=== PATIENT | male | born 1975 | race Two or more races ===

== ENCOUNTER 2018-09-29 07:44 | Day surgery (SDC) | payer OTHER ==
[~2018-09-29] VITALS: Ht 180.3 cm; Wt 106.6 kg
[2018-09-29] VITALS (12 sets, daily range): BP systolic 96–133; BP diastolic 52–86
--- NOTE | 2018-09-29 07:22 | Pre-Procedure Note/Attestation ---
Pre-Procedure Note/Attestation Complete Prior to Procedure Planned Procedure: right Procedure Narrative: knee arthroscopy, medial menisectomy Indications for Procedure Pre-Operative Diagnosis: right knee medial menisectomy Attestation I attest that I discussed the nature of the procedure; its benefits; risks and complications; and alternatives (and the risks and benefits of such alternatives ), prior to the procedure, with the patient (or the patient's legal kiosk sales representative). I attest that, if there was a reasonable possibility of needing a blood transfusion, the patient (or the patient's legal kiosk sales representative) was given the [facility] standardized written summary, pursuant to the Tommy Fillmore Blood Safety Act ([place] Health and Safety Code # 1645, as amended). I attest that I re-evaluated the patient just prior to the surgery and that there has been no change in the patient's H&P, except as documented below: Newton Underwood MD Sep 29, 2018 07:22
--- NOTE | 2018-09-29 07:22 | Operative Note - PDOC ---
Operative Note Operative Note Pre-op Diagnosis: right knee medial menisectomy Procedure: see op report Post-op Diagnosis: same as pre-op plus Operative Findings: consistent w/pre-op dx studies Anesthesia: general Specimen: none Complications: none Condition: stable Estimated Blood Loss: none Implant(s) used?: No Newton Underwood MD Sep 29, 2018 07:22
[~2018-09-29 07:44] MED LIST: ceFAZolin 1gm IVPB IVPB ONE; celeBREX 200mg Cap **SURGERY PATIENTS ONLY ORAL ONE; oxyCONTIN 20mg tab ORAL ONE
[2018-09-29] MEDS ORDERED: celeBREX 200mg Cap **SURGERY PATIENTS ONLY ORAL ONE (08:41)
[2018-09-29] MEDS ORDERED: oxyCONTIN 20mg tab ORAL ONE (08:41)
--- NOTE | 2018-09-29 09:06 | Anethesia Preoperative Eval ---
Anesthesia Pre-op PMH/ROS General Date of Evaluation: Sep 29, 2018 Anesthesiologist: Mark ASA Score: ASA 2 Mallampati Score Class I : Soft palate, uvula, fauces, pillars visible Class II: Soft palate, uvula, fauces visible Class III: Soft palate, base of uvula visible Class IV: Only hard plate visible Mallampati Classification: Class II Surgeon: Kj Diagnosis: Right knee medial meniscus tear Surgical Procedure: Right knee arthroscopy, medial meniscectomy Anesthesia History: none Family History: no anesthesia problems Allergies: Coded Allergies: No Known Allergies (Unverified , 09/28/18) Medications: see eMAR Patient NPO?: Yes NPO Date: Sep 28, 2018 NPO Time: 22:00 Past Medical History Cardiovascular: Denies: HTN, CAD, MS, valve dz, arrhythmia, other Pulmonary: Denies: asthma, COPD, MARIALUISA, other Gastrointestinal/Genitourinary: Denies: GERD, CRI, ESRD, other Neurologic/Psychiatric: Denies: dementia, CVA, depression/anxiety, TIA, other Endocrine: Denies: DM, hypothyroidism, steroids, other HEENT: Denies: cataract (L), cataract (R), glaucoma, KOTZEBUE (L), KOTZEBUE (R), other Hematology/Immune: Denies: anemia, DVT, bleeding disorder, other Musculoskeletal/Integumentary: Denies: OA, RA, DJD, DDD, edema, other PSxH Narrative: Denies Anesthesia Pre-op Phys. Exam Physician Exam Last Vital Signs Date Time Temp Pulse Resp B/P (MAP) Pulse Ox O2 Delivery O2 Flow Rate FiO2 09/29/18 08:58 98.5 77 18 118/85 96 Room Air Constitutional: NAD Cardiovascular: RRR Respiratory: CTA Airway Exam Mallampati Score: Class III MO: limited ROM: limited Teeth: intact Anesthesia Pre-op A/P Labs see chart Studies Pre-op Studies: EKG - sr Risk Assessment & Plan Assessment: ASA II Plan: GA Status Change Before Surgery: No Pre-Antibiotics Drug: Ancef 2g Given Within 1 Hr of Incision: Yes La Nena Hobbs MD Sep 29, 2018 09:06
[2018-09-29] MEDS ORDERED: LR 1000ml 1,000 ML IVLG SCH (09:07)
[2018-09-29] MEDS ORDERED: Midazolam 2mg/2ml Inj IVP PRN (09:15)
[2018-09-29] MEDS ORDERED: Hydromorphone 0.5mg/0.5ml inj IVP PRN (09:15)
[2018-09-29] MEDS ORDERED: DiphenhydrAMINE 50mg/ml Inj IVP PRN (09:15)
[2018-09-29] MEDS ORDERED: LORazepam Inj 2mg/ml 1ml IV PRN (09:15)
[2018-09-29] MEDS ORDERED: Ketorolac 30mg Inj IV PRN (09:15)
[2018-09-29] MEDS ORDERED: fentaNYL 100 mcg/2 mL IV PRN (09:15)
[2018-09-29] MEDS ORDERED: Bupivacaine 0.5% Inj 30 ml vial INJ ONE (09:44)
[2018-09-29] MEDS ORDERED: Lidocaine 1% 10mg/ml/Epi 0.005mg/ml 30ml vial INJ ONE (09:44)
[2018-09-29] MEDS ORDERED: Ketorolac 30mg Inj ONE ×2 (09:44→09:55)
[2018-09-29] MEDS ORDERED: Kenalog-40 1ml Vial ONE (09:44)
[2018-09-29] MEDS ORDERED: Morphine Sulfate PF 10 ML ONE (09:45)
[2018-09-29] MEDS ORDERED: EPINEPHrine 1mg/1ml Amp ONE (09:45)
[2018-09-29] MEDS ORDERED: Propofol 200mg/20ml IV ONE (09:55)
[2018-09-29] MEDS ORDERED: Lidocaine 1% MPF 10mg/ml 5ml ONE ×2 (09:55→15:42)
[2018-09-29] MEDS ORDERED: fentaNYL 100 mcg/2 mL IV ONE (09:55)
[2018-09-29] MEDS ORDERED: Midazolam 2mg/2ml Inj ONE (09:55)
[2018-09-29] MEDS ORDERED: Duramorph PF 10mg/10ml amp IV ONE (09:57)
[2018-09-29] MEDS ORDERED: NS Irrig 4000ml IRRIG ONE (09:57)
[2018-09-29] MEDS ORDERED: LR 1000ml ONE (10:00)
--- NOTE | 2018-09-29 11:04 | Immediate Post-Op Evaluation ---
Immediate Post-Op Evalulation Immediate Post-Op Evalulation Procedure: Right knee arthroscopy Date of Evaluation: Sep 29, 2018 Time of Evaluation: 11:06 IV Fluids: 700 Blood Products: 0 Estimated Blood Loss: min Urinary Output: 0 Blood Pressure Systolic: 96 Blood Pressure Diastolic: 56 Pulse Rate: 67 Respiratory Rate: 18 O2 Sat by Pulse Oximetry: 96 Temperature (Fahrenheit): 97 Pain Score (1-10): 0 Nausea: No Vomiting: No Complications 0 Patient Status: awake, reacts, patent, none Hydration Status: adequate Drug: Ancef 2g Given Within 1 Hr of Incision: Yes Time Given: 10:10 La Nena Hobbs MD Sep 29, 2018 11:04
--- NOTE | 2018-09-29 11:05 | 48 Hour Post Anesthesia Eval ---
Post Anesthesia Evaluation Procedure: Right knee arthroscopy Date of Evaluation: Sep 29, 2018 Blood Pressure Systolic: 128 0: 83 Pulse Rate: 76 Respiratory Rate: 20 Temperature (Fahrenheit): 97.5 O2 Sat by Pulse Oximetry: 97 Airway: patent Nausea: No Vomiting: No Pain Intensity: 0 Hydration Status: adequate Cardiopulmonary Status: at baseline Mental Status/LOC: patient returned to baseline Post-Anesthesia Complications: 0 Follow-up care needed: ready to discharge La Nena Hobbs MD Sep 29, 2018 11:05
[2018-09-29] MEDS ORDERED: Ropivacaine 5mg/ml Vial 30ml INJ ONE (15:42)
[2018-09-29] MEDS ORDERED: Tylenol #3 tab (300mg/30mg) ORAL PRN (16:01)
[2018-09-29] MEDS ORDERED: Norco 5mg/325mg tab ORAL PRN (16:01)
[2018-09-29] MEDS ORDERED: D5 1/2NS 1,000 ML IV SCH (16:01)
[2018-09-29] MEDS ORDERED: HYDROmorphone 1mg/ml Carpuject SUBQ PRN (16:01)
--- NOTE | 2018-09-29 19:17 | Operative Note - Dictated ---
DATE OF OPERATION: 09/29/2018 PREOPERATIVE DIAGNOSIS: Right knee internal derangement and meniscal tear. POSTOPERATIVE DIAGNOSES: 1. Right knee peripheral tear of posterior horn and middle body medial meniscus. 2. Hypertrophic synovial tissue/fat pad in medial and lateral patellofemoral compartment. PROCEDURES: 1. Right knee diagnostic arthroscopy. 2. Synovectomy/fixation of fat pad of medial and lateral patellofemoral compartment. SURGEON: Newton Underwood M.D. ANESTHESIA: General. INDICATION FOR PROCEDURE: The patient is a pleasant gentleman, who has had progressive knee pain. The patient failed conservative treatment and elected to undergo right knee diagnostic arthroscopy with possible meniscectomy. Risks, limitations, expectations, and complications of the procedure were discussed in detail. All questions addressed. DESCRIPTION OF PROCEDURE: After informed consent was obtained, the patient was brought to the operating room. The patient was placed under general anesthesia. Tourniquet was applied on the right proximal thigh. Right leg was prepped and draped in a sterile manner. Time-out was performed. An inferolateral stab incision was then made. There was significant resistance introducing the trocar into the lateral portal. Patellofemoral compartment was entered and there was hypertrophic fat pad in synovial tissue making visualization somewhat difficult. Medial gutter was entered free of any loose bodies. Medial compartment was entered. Medial working portal was established. At this point, the fat pad in the synovial tissue around the medial compartment lateral compartment was all debrided to better visualize the compartments. Once that was completed, the camera was placed in the medial compartment and the meniscus was probed. There was a small peripheral tear along the middle body of the medial meniscus. The probe was then placed into this area to see if there is gross subluxation of the meniscus, which was not the case. Therefore, a shaver was then placed along the area where it was torn to up the soft tissues along the peripheral aspect of the meniscus to allow it to heal. Once that was done, the ACL was probed and noted to be intact. Lateral compartment entered and free of the meniscal chondral damage. At this point, the camera was placed in the patellofemoral compartment. Dissection of the fat pad and Synovectomy was completed. Instruments removed. Portal sites were closed with 3-0 Monocryl sutures. Steri-Strips and a sterile dressing were applied. The patient was awoken and taken to recovery room with stable vital signs. ESTIMATED BLOOD LOSS: None. COMPLICATIONS: None. SPECIMENS: None. IMPLANTS: None. Newton Underwood M.D. DR: NOAM JOB#: [id number] CC:
== END 2018-09-29 14:50 | disposition home or self-care (01) ==
LOC: SUR 07:44
DX: M23.221 Derangement of posterior horn of medial meniscus due to old tear or injury, right knee (principal); M67.261 Synovial hypertrophy, not elsewhere classified, right lower leg; M79.4 Hypertrophy of (infrapatellar) fat pad
CPT/HCPCS: 29876; J0171; J0690; J1885; J2250; J2274; J2704; J2795; J3010; J3301; J3490; 94003; 94150

== ENCOUNTER 2019-01-24 05:09 | Inpatient (IN) | payer OTHER ==
[2019-01-24] VITALS (10 sets, daily range): BP systolic 109–129; BP diastolic 62–81
[~2019-01-24] VITALS: Ht 180.3 cm; Wt 99.8 kg
[~2019-01-24 05:09] MED LIST changes: +NKM; -ceFAZolin 1gm IVPB IVPB ONE; -celeBREX 200mg Cap **SURGERY PATIENTS ONLY ORAL ONE; -oxyCONTIN 20mg tab ORAL ONE
[2019-01-24] MEDS ORDERED: Dexamethasone 20mg/5ml ONE (05:53)
[2019-01-24] MEDS ORDERED: LR 1000ml 1,000 ML IVLG SCH (06:09)
--- NOTE | 2019-01-24 06:10 | Anethesia Preoperative Eval ---
Anesthesia Pre-op PMH/ROS General Date of Evaluation: Jan 24, 2019 Time of Evaluation: 07:11 Anesthesiologist: Genevieve ASA Score: ASA 2 Mallampati Score Class I : Soft palate, uvula, fauces, pillars visible Class II: Soft palate, uvula, fauces visible Class III: Soft palate, base of uvula visible Class IV: Only hard plate visible Mallampati Classification: Class II Surgeon: Cecilio Diagnosis: Neck Pain Surgical Procedure: ACDF C3-4, C4-5 Family History: no anesthesia problems Allergies: Coded Allergies: No Known Allergies (Unverified , 01/23/19) Medications: see eMAR Patient NPO?: Yes NPO Date: Jan 23, 2019 NPO Time: 2100 Past Medical History Cardiovascular: Reports: HTN Other: obesity - BMI 31 PSxH Narrative: R Knee Arthroscopy Anesthesia Pre-op Phys. Exam Physician Exam Last Vital Signs Date Time Temp Pulse Resp B/P (MAP) Pulse Ox O2 Delivery O2 Flow Rate FiO2 01/24/19 05:48 Room Air 01/24/19 05:43 97.5 75 18 129/81 (97) 98 Constitutional: NAD Neurologic: CN 2-12 intact Cardiovascular: RRR Respiratory: CTA Gastrointestinal: S/NT/ND Airway Exam Mallampati Score: Class II MO: full ROM: limited Teeth: missing, intact Anesthesia Pre-op A/P Risk Assessment & Plan Assessment: ASA 2 Plan: GA, SED, GlideScope Go Status Change Before Surgery: No Pre-Antibiotics Dru Grams Ancef IV Given Within 1 Hr of Incision: Yes Time Given: 07:31 Rufino Vallejo MD Jan 24, 2019 06:10
[2019-01-24] MEDS ORDERED: Zemuron 50mg/5ml Inj IV ONE (06:14)
[2019-01-24] MEDS ORDERED: Meperidine 50mg/ml Inj(FOR RIGORS ONLY) IVP PRN (06:15)
[2019-01-24] MEDS ORDERED: Norco 5mg/325mg tab ORAL PRN (06:15)
[2019-01-24] MEDS ORDERED: oxyCODONE HCL/Acetaminophen 5/325mg ORAL PRN (06:15)
[2019-01-24] MEDS ORDERED: LORazepam Inj 2mg/ml 1ml IV PRN (06:15)
[2019-01-24] MEDS ORDERED: Metoclopramide 10mg/2ml Inj IVP PRN (06:15)
[2019-01-24] MEDS ORDERED: Atropine Sulfate 0.4mg/ml inj IVP PRN (06:15)
[2019-01-24] MEDS ORDERED: Midazolam 2mg/2ml Inj IVP PRN (06:15)
[2019-01-24] MEDS ORDERED: DiphenhydrAMINE 50mg/ml Inj IVP PRN (06:15)
[2019-01-24] MEDS ORDERED: Hydromorphone 0.5mg/0.5ml inj IVP PRN (06:15)
[2019-01-24] MEDS ORDERED: fentaNYL 100 mcg/2 mL IV PRN (06:15)
[2019-01-24] MEDS ORDERED: Ketorolac 30mg Inj IV PRN ×2 (06:15)
[2019-01-24] MEDS ORDERED: HYDROcodone/Acetamin 7.5/325 tab ORAL PRN (06:15)
[2019-01-24] MEDS ORDERED: Bacitracin 50000 Units Vial ONE (06:26)
[2019-01-24] MEDS ORDERED: Gelfoam Size TOPIC ONE (06:26)
[2019-01-24] MEDS ORDERED: Thrombin 5000 units TOPIC ONE (06:26)
[2019-01-24] MEDS ORDERED: Acetaminophen (Non formulary) 100 ML IV ONE (06:30)
[2019-01-24] MEDS ORDERED: Sodium Chloride 10ml vial INJ ONE (06:33)
[2019-01-24] MEDS ORDERED: Dexamethasone 4mg/ml vial ONE (06:33)
[2019-01-24] MEDS ORDERED: Lidocaine 1% MPF 10mg/ml 5ml ONE (06:33)
[2019-01-24] MEDS ORDERED: Lidocaine 1% Plain 30 ml INJ ONE (06:33)
[2019-01-24] MEDS ORDERED: fentaNYL 100 mcg/2 mL IV ONE ×2 (06:34→08:35)
--- NOTE | 2019-01-24 06:56 | Immediate Post-Op Evaluation ---
Immediate Post-Op Evalulation Immediate Post-Op Evalulation Procedure: ACDF C3-4, C4-5 Date of Evaluation: Jan 24, 2019 Time of Evaluation: 10:19 IV Fluids: 1000 LR Blood Products: 0 Estimated Blood Loss: 25 Urinary Output: 0 Blood Pressure Systolic: 114 Blood Pressure Diastolic: 64 Pulse Rate: 75 Respiratory Rate: 16 O2 Sat by Pulse Oximetry: 95 Temperature (Fahrenheit): 97 Pain Score (1-10): 2 Nausea: No Vomiting: No Complications 0 Patient Status: awake, reacts, patent, none Hydration Status: adequate Dru grams Ancef IV Given Within 1 Hr of Incision: Yes Time Given: 07:31 Rufino Vallejo MD Jan 24, 2019 06:56
[2019-01-24] MEDS ORDERED: Neostigmine 1mg/ml 10ml Inj ONE (07:00)
[2019-01-24] MEDS ORDERED: Sterile Water Irrig 1000ml IRRIG ONE (07:00)
[2019-01-24] MEDS ORDERED: LR 1000ml ONE (07:00)
[2019-01-24] MEDS ORDERED: Dexamethasone 20mg/5ml IVP ONE (07:00)
[2019-01-24] MEDS ORDERED: ceFAZolin sod 1 GM in NS 55 ML IVPB ONE (07:00)
[2019-01-24] MEDS ORDERED: Propofol 1,000mg/ 100ml btl IV ONE (07:00)
[2019-01-24] MEDS ORDERED: NS Irrig 1000ml ONE (07:00)
--- NOTE | 2019-01-24 07:15 | Pre-Procedure Note/Attestation ---
Pre-Procedure Note/Attestation Complete Prior to Procedure Planned Procedure: not applicable Procedure Narrative: ACDF C3-C4, C4-C5 Plate Indications for Procedure Pre-Operative Diagnosis: Trauma HNP radiculopathy Attestation I attest that I discussed the nature of the procedure; its benefits; risks and complications; and alternatives (and the risks and benefits of such alternatives ), prior to the procedure, with the patient (or the patient's legal airline security representative). I attest that, if there was a reasonable possibility of needing a blood transfusion, the patient (or the patient's legal airline security representative) was given the [facility] standardized written summary, pursuant to the Tommy Yelena Blood Safety Act ([place] Health and Safety Code # 1645, as amended). I attest that I re-evaluated the patient just prior to the surgery and that there has been no change in the patient's H&P, except as documented below: Tra Hernandes MD Jan 24, 2019 07:15
[2019-01-24] MEDS ORDERED: Labetalol 5mg/ml 20ml vial IV ONE (08:01)
[2019-01-24] MEDS ORDERED: Phenylephrine 10mg/ml Vial ONE (08:12)
[2019-01-24] MEDS ORDERED: Glycopyrrolate 0.2mg/ml 1ml Vial ONE (09:08)
--- NOTE | 2019-01-24 09:50 | Brief Operative Note ---
Immediate Post Operative Note Operative Note Pre-op Diagnosis: Trauma HNP radiculopathy Procedure: ACDF C3-C4, C4-C5 Anterior Plate Body Habitus Microscope SSEP Xray Post-op Diagnosis: same as pre-op Findings: consistent w/pre-op dx studies Surgeon: Cecilio GAXIOLA Additional Surgeons: Antonette GAXIOLA Anesthesiologist: Genevieve GAXIOLA Anesthesia: general Specimen: yes Complications: none Condition: stable Fluids: anesthesia Estimated Blood Loss: minimal Drains: none Implant(s) used?: Yes Tra Hernandes MD Jan 24, 2019 09:50
[2019-01-24] MEDS ORDERED: Naloxone 0.4mg/ml Inj IVP PRN ×2 (10:30→13:30)
--- NOTE | 2019-01-24 11:07 | Diagnostic Imaging Report ---
INDICATION: Pain, intraoperative TECHNIQUE: Intraoperative imaging Fluoroscopy time: 17.2 seconds Total dose: 0.73612 mGym2 Total number of images: 3 COMPARISON: None FINDINGS: Intraoperative images demonstrate surgical tool projected at the anterior aspect of the C3-4 disc level. Subsequent images document placement of anterior fusion hardware and disc spacers bridging C3-C5. IMPRESSION: Intraoperative imaging as described
[2019-01-24] MEDS ORDERED: Tamsulosin 0.4mg cap ORAL SCH (12:30)
[2019-01-24] MEDS ORDERED: Hydromorphone 0.5mg/0.5ml inj SUBQ PRN (12:45)
[2019-01-24] MEDS ORDERED: Hydromorphone 0.5mg/0.5ml inj SUBQ SCH (13:00)
[2019-01-24] MEDS ORDERED: Chloraseptic Spray 20mL Bottle ORAL ONE (13:00)
[2019-01-24] MEDS ORDERED: Chloraseptic Spray 20mL Bottle ORAL PRN (13:00)
--- NOTE | 2019-01-24 13:30 | NUR ---
NURSE NOTES: Patient is in bed asleep but arousable to verbal stimuli. Patient denies pain, no facial grimacing, moaning or labored breathing noted. Patient is able to move all extremities. Patient is stable. Patient oriented to room, call light, and nurses. Patient encouraged to use call light for assistance, verbalized understanding. Surgical dressing is clean, dry, and intact. Patient is comfortable in bed with call light within reach. Will continue to monitor.
[2019-01-24] MEDS: D5 1/2NS 1,000 ML IV SCH ×3 (14:06→21:40)
[2019-01-24] MEDS: HYDROcodone/Acetamin 10/325 tab ORAL PRN ×2 (14:11→21:40)
--- NOTE | 2019-01-24 15:14 | NUR ---
CASE MANAGEMENT: INITIAL REVIEW 43 YO M PRESENTED TO OUR ED FROM HOME PMHx: HTN. SI:CERVICAL DISCOGENIC PAIN. T 97.5 HR 75 RR 18 B/P 129/81 SATS 98% ON RA NO LABS TODAY IS: IVF @ 125 mL/HR PEPCID PO BID CEFAZOLIN IV Q8H PATIENT ADMITTED TO MED/SURG 01/24/2019 @ 1236 DCP: PATIENT TO BE DISCHARGED TO HOME ONCE MEDICALLY CLEARED. PLAN OF CARE: NEURO CHECKS CLD PT EVAL DISCHARGE TO HOME TODAY Addendum: 01/24/19 at 1733 by Tomeka Pimentel CM [employer]
[2019-01-24] MEDS: ceFAZolin sod 1 GM in D5W 55 ML IV SCH (15:36)
--- NOTE | 2019-01-24 18:46 | Operative Note - Dictated ---
DATE OF OPERATION: 01/24/2019 SURGEON: Tra Hernandes, Ph.D., M.D. COMMUNICATIONS DESIGNER SURGEON: Haroon Whitman M.D. ANESTHESIOLOGIST: Rufino Vallejo M.D. ANESTHESIA: General with intubation. ADMITTING/PREOPERATIVE DIAGNOSIS: Posttraumatic cervical radiculopathy. POSTOPERATIVE DIAGNOSIS: Posttraumatic cervical radiculopathy. OPERATIVE PROCEDURES: 1. ACDF C3-C4, C4-C5. 2. Anterior internal plate fixation, bilateral C3-C4-C5. 3. Body habitus greater than 95th percentile for height. 4. High-powered microscopic dissection. 5. SSEP monitoring. 6. Intraoperative fluoroscopy interpreted by surgeon. 7. Placement of osteopromotive material, C3-C4, C4-C5. COMPLICATIONS: None. ESTIMATED BLOOD LOSS: Minimal. POSTOPERATIVE CONDITION: Good/stable. DESCRIPTION OF PROCEDURE: The patient was brought to the operating room and in supine position general anesthesia intubation was induced. SSEP monitoring active. Positioning appropriate. Determination of incision level with markers placed on the contralateral aspect of the neck and cross-table imaging obtained. Levels marked. Anterior cervical spine sterilely prepped and draped free in usual sterile fashion. Transverse incision left in the skin fold at the appropriate interval was sharply placed in the dermis and epidermis. Electrocautery dissection was carried through the subcutaneous tissue to the level of the platysmas muscle was identified, isolated and transected in line with the incision. Blunt dissection was carried medial to the left sternocleidomastoid and left carotid sheath through the deep cervical pretracheal fascia to the midline between the right and left longus colli muscles. Spinal needle bent at 90 degree angle so as to avoid penetration greater than 3 mm in the disc space was placed into the disk space under high-power magnification observation. Cross-table imaging obtained under sterile conditions demonstrating the correct level for further dissection. Level marked. Needle removed. Subperiosteal dissection of the longus colli muscles not greater than 3 mm in the mediolateral extent. Retractors placed. C3-C4: Annulotomy followed with diskectomy to but not through the posterior longitudinal ligament. Midas Kiko bur utilization for endplate preparation as appropriate. Trials determination of depth size. Titanium containing osteopromotive material placed. Lordotic cage tamped into excellent position. AP and lateral radiographs obtained demonstrating excellent alignment and positioning. Attention was turned to the C4-C5 interval. Retractors placed. Under high-power magnification, annulotomy followed diskectomy to the posterior longitudinal ligament. Denuding of the endplates with Midas Kiko bur dissection under high-power magnification. Appropriate trial utilized followed with placement of a titanium graft of the appropriate dimensions containing osteopromotive material. AP and lateral radiographs obtained demonstrating excellent alignment position. All traction on the neck was removed (10 pounds). Anterior internal plate fixation was undertaken utilizing the AP and lateral fluoroscopy for determination of level, appropriate angle/depth of screws and position. Bilateral screws placed C3, C4, C5 locked into position. Final radiographs obtained under sterile conditions and printed. Wound irrigated with antibiotic-containing saline. Exploration under high-power magnification did not reveal any obvious laceration of the vital structures. Wound irrigated with antibiotic-containing saline. FloSeal applied. Reapproximation of platysmas muscle, followed with reapproximation of dermis and epidermis. Transverse surgical strips, sterile bandage. Bandage maintained in place with tape. The patient was awakened and extubated in the operating room, transported to postop recovery in good stable condition. Tra Hernandes M.D. DR: MOISÉS JOB#: [id number] CC:
--- NOTE | 2019-01-24 19:30 | NUR ---
HAND-OFF: Report given to Yaima BOND. Patient is stable.
--- NOTE | 2019-01-24 19:45 | NUR ---
NURSE NOTES: Pt lying in bed w/bed in lowest position and call light within reach. Pt A&Ox4; VSS; neuro check stable; and c/o 8/10 pain; will administer pain medication. IV site intact/asymptomatic w/IVF @ 125 ml/hr; and surgical dressing C/D/I. Will continue to monitor.
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
[2019-01-25] VITALS: BP 101/63
[2019-01-25] MEDS: ceFAZolin sod 1 GM in D5W 55 ML IV SCH ×2 (00:04→07:19)
[2019-01-25 04:00] VITALS: BP 103/62
--- NOTE | 2019-01-25 07:15 | NUR ---
NURSE NOTES: Received report from RONDA Erwin. Rounding done with outgoing nurse. Patient a/o x4 lying on the bed. No respiratory distress noted. c/o neck surgical site pain 5/10 and will be given pain medicine as MD ordered. Bed in lowest position, call light within reach. Will continue to monitor.
--- NOTE | 2019-01-25 07:30 | NUR ---
HAND-OFF: Report given to RONDA Aden.
--- NOTE | 2019-01-25 07:44 | NUR ---
NURSE NOTES: Received report from RONDA Erwin. Rounding done with outgoing nurse. Patient a/o x4 lying on the bed. No respiratory distress noted. c/o neck surgical site pain 5/10 and will be given pain medicine as MD ordered. Right and Left J/P is in placed and patent. Bed in lowest position, call light within reach. Will continue to monitor. Addendum: 01/25/19 at 0750 by Padmini Hernandez RN REGARDLESS PLEASE ERASE, WRONG PATIENT
[2019-01-25 08:00] VITALS: BP 111/73
--- NOTE | 2019-01-25 08:40 | NUR ---
P.T Note: P P.T evaluation completed and tx initiated per spinal protocol. Please refer to P.T evaluation for functional status.
--- NOTE | 2019-01-25 08:47 | Progress Note ---
DATE: 01/25/2019 ACUTE PAIN MANAGEMENT PHYSICIAN PROGRESS NOTE MEDICATIONS: Medication administration record reviewed. Medications include Chloraseptic spray, Zofran, Narcan, [place], Pepcid, Benadryl, Soma, Mylanta, and Tylenol. LABORATORY STUDIES: No interval laboratory studies. OBJECTIVE: VITAL SIGNS: Within normal limits. Afebrile, pulse 98, respirations 18, blood pressure 101/63, oxygen saturation 96% on room air. I spent over 60 minutes in consultation today. I discussed the case with the surgeon, Dr. Hernandes, along with the overnight nurse, RN, Yaima. Now that the patient has been ambulating in and out of bed to the restroom. He is voiding urine well. He has been using his incentive spirometer with good compliance. Topical Chloraseptic spray is somewhat helpful. Additionally, the patient has been tolerating the oral hydrocodone pills, which he also has at home for home usage for analgesia. The patient has been tolerating liquid diet. He denies any nausea symptoms. At this point, I will Hep-Lock his IV fluids and discontinue his supplemental oxygen to help expedite his discharge to home. The patient will arrange transportation for his long drive to and I have asked the nursing team to generously dose the patient with p.r.n. pain medications to help ease the long 3-hour drive back home today. The patient does have extended family to live with at his home. Overall, the patient is recovering well from his multilevel neck instrumentation surgery. The patient will follow up with Dr. Hernandes and Dr. Hernandes' outpatient surgical clinic in approximately 2 weeks for surgical followup. Jac Mohamud M.D. DR: DEREK JOB#: [id number] CC:
[2019-01-25] MEDS: HYDROcodone/Acetamin 10/325 tab ORAL PRN (09:09)
[2019-01-25] MEDS ORDERED: D5 1/2NS 1000ml IV ONE (09:59)
--- NOTE | 2019-01-25 10:00 | NUR ---
NURSE NOTES: Discharge instruction was given. Belongings checked with the patient. IV line removed. Patient discharged in stable condition.
[2019-01-25 11:11] VITALS: BP 116/78
--- NOTE | 2019-01-25 11:11 | 48 Hour Post Anesthesia Eval ---
Post Anesthesia Evaluation Procedure: ACDF C3-4, C4-5 Date of Evaluation: Jan 25, 2019 Time of Evaluation: 11:05 Blood Pressure Systolic: 116 0: 78 Pulse Rate: 64 Respiratory Rate: 20 Temperature (Fahrenheit): 97.6 O2 Sat by Pulse Oximetry: 98 Airway: patent Nausea: No Vomiting: No Pain Intensity: 1 Hydration Status: adequate Cardiopulmonary Status: stable Mental Status/LOC: patient returned to baseline Follow-up Care/Observations: n/a Post-Anesthesia Complications: none Follow-up care needed: ready to discharge Stuart Childers MD Jan 25, 2019 11:11
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
== END 2019-01-25 10:00 | disposition home or self-care (01) | DRG 473 ==
LOC: SUR 05:09 → 3E 12:01
PROC: 0RG20A0 Fusion of 2 or more Cervical Vertebral Joints with Interbody Fusion Device, Anterior Approach, Anterior Column, Open Approach (ICD-10-PCS; principal; 2019-01-24 07:00)
PROC: 0RB30ZZ Excision of Cervical Vertebral Disc, Open Approach (ICD-10-PCS; principal; 2019-01-24 07:00)
DX: M50.11 Cervical disc disorder with radiculopathy, high cervical region (principal); E66.9 Obesity, unspecified; V89.2XXS Person injured in unspecified motor-vehicle accident, traffic, sequela; G89.18 Other acute postprocedural pain; Z68.30 Body mass index [BMI] 30.0-30.9, adult
CPT/HCPCS: 36415; 72040; 76000; 86850; 86900; 86901; 87081; J2370; J2405; J2710